=== PATIENT | male | born 1985 | race African-American/Black ===

== ENCOUNTER 2017-03-13 13:00 | Emergency (ER) | payer OTHER ==
[2017-03-13 13:04] VITALS: BP 115/81; PULSE 61; TEMP 98.8; BMI 24.3
--- NOTE | 2017-03-13 13:06 | PDOC ---
History of Present Illness - General Chief Complaint: Injury Stated Complaint: RT FOOT-ANKLE PAIN Time Seen by Provider: 03/13/17 13:05 History Source: Patient Exam Limitations: No Limitations - History of Present Illness Initial Comments: 31 yo M no PMH presents with R foot pain s/p injury at work. He states that he caught his ankle in a shopping cart that was behind him, pulling the ankle down toward the ground as he was walking away from it. He felt a pop in the mid-foot , and now c/o pain to the R foot. He denies any other injuries. He has been limping due to pain. Denies weakness, numbness. No ankle pain. Past History - Past Medical History Allergies/Adverse Reactions: Allergies Allergy/AdvReac Type Severity Reaction Status Date / Time No Known Drug Allergies Allergy Verified 03/13/17 13:01 Home Medications: Ambulatory Orders NK [No Known Home Medication] 03/13/17 Other medical history: DENIES - Psycho/Social/Smoking Cessation Hx Anxiety: No Suicidal Ideation: No Smoking History: Never smoked Hx Alcohol Use: No Drug/Substance Use Hx: No Review of Systems - Review of Systems Able to Perform ROS?: Yes Comments:: GENERAL/CONSTITUTIONAL: No fever or chills. No weakness. HEAD, EYES, EARS, NOSE AND THROAT: No change in vision. No ear pain or discharge. No sore throat. MUSCULOSKELETAL: +R midfoot pain. No muscle swelling. No neck or back pain. SKIN: No rash NEUROLOGIC: No headache, vertigo, loss of consciousness, or change in strength/ sensation. *Physical Exam - Vital Signs Last Vital Signs Temp Pulse Resp BP Pulse Ox 98.8 F 61 18 115/81 97 03/13/17 13:00 03/13/17 13:00 03/13/17 13:00 03/13/17 13:00 03/13/17 13:00 - Physical Exam Comments: GENERAL: Awake, alert, and fully oriented, in no acute distress HEAD: No signs of trauma EYES: PERRLA, EOMI, sclera anicteric, conjunctiva clear ENT: Auricles normal inspection, hearing grossly normal, nares patent, oropharynx clear without exudates. Moist mucosa NECK: Normal ROM, supple, no lymphadenopathy, JVD, or masses EXTREMITIES: R foot with tenderness over the base of the 5th metatarsal. Dec dorsiflexion of the foot due to pain. Remainder of extremities with normal range of motion, no edema. No clubbing or cyanosis. No cords, erythema, or tenderness NEUROLOGICAL: Cranial nerves II through XII grossly intact. Normal speech. Motor and sensation intact. Gait not tested due to nature of complaint. SKIN: Warm, Dry, normal turgor, no rashes or lesions noted. Medical Decision Making - Medical Decision Making 03/13/17 13:50 Pt declines pain meds, but has applied ice. 03/13/17 14:29 XR reviewed, no acute findings. Will crutch train. Podiatry f/u. 03/13/17 14:36 Pt declined crutches, would like to try a cane instead. *DC/Admit/Observation/Transfer Diagnosis at time of Disposition: Right foot sprain Qualifiers: Encounter type: initial encounter Qualified Code(s): S93.601A - Unspecified sprain of right foot, initial encounter - Discharge Dispostion Disposition: HOME Condition at time of disposition: Stable Admit: No - Referrals Referrals: Ángel David MD [Staff Physician] - - Patient Instructions Printed Discharge Instructions: DI for Foot Sprain
[2017-03-13] MEDS ORDERED: IBUPROFEN 600 MG TABLET (FP) PO ONE ×2 (14:36)
== END 2017-03-13 14:45 | disposition home or self-care (01) ==
LOC: FER 13:00
DX: S93.601A Unspecified sprain of right foot, initial encounter (principal); W20.8XXA Other cause of strike by thrown, projected or falling object, initial encounter; Y93.89 Activity, other specified; Y92.9 Unspecified place or not applicable
CPT/HCPCS: 73630-TC-RT; 99283-25